=== PATIENT | female | born 1985 | race Caucasian/White ===

== ENCOUNTER 2017-04-23 08:20 | Inpatient (IN) | payer BC ==
[2017-04-23 11:47] LABS: ABS Basophils 0 10^3/ul (0-0.2); ABS Eosinophils 0 10^3/ul (0-0.6); ABS Monocytes 0.5 10^3/ul (0-0.8); ABS Neutrophils 9.8 10^3/ul (1.5-7.7); ABS Nucleated RBC 0 10^3/ul; Eosinophil % 0.3 % (0-6); Hematocrit 36 % (35-47); Hemoglobin 11.4 g/dl (12.0-16.0); Lymphocyte % 15.9 % (25-47); Mean Corpuscular HGB Conc 32 g/dl (31-36); Mean Corpuscular Hemoglobin 25 pg (27-31); Mean Corpuscular Volume 79 fL (80-97); Mean Platelet Volume 11 um3 (7.4-10.4); Nucleated Red Blood Cells % 0; Platelet Count 134 10^3/ul (150-450); Red Blood Count 4.55 10^6/ul (4.0-5.4); Red Cell Distribution Width 16 % (10.5-15); White Blood Count 12.3 10^3/ul (3.5-10.8)
[2017-04-23] MEDS ORDERED: OBEPIDURAL* 250 ML EPIDURAL ONE (12:27)
[2017-04-23] MEDS ORDERED: Famotidine TAB* 20 MG PO PRN (13:02)
[2017-04-23] MEDS ORDERED: Sodium Citrate/Citric Acid* 15 ML UDC PO PRN (13:02)
[2017-04-23] MEDS ORDERED: Phenylephrine IV* 40 MCG/ML 10 ML SYRINGE IV PUSH PRN ×2 (13:02)
[2017-04-23] MEDS ORDERED: OBEPIDURAL* 250 ML EPIDURAL SCH (14:00)
[2017-04-23] MEDS ORDERED: Glycerin ADULT SUPP PR PRN (17:29)
[2017-04-23] MEDS ORDERED: Acetaminophen TAB* 325 MG PO PRN (17:29)
[2017-04-23] MEDS ORDERED: Simethicone TAB* 80 MG TAB.CHEW PO SCH (17:30)
[2017-04-23] MEDS ORDERED: OXYTOCIN* 10 UNITS/ML 1 ML VIAL ONE (17:55)
[2017-04-23] MEDS ORDERED: Oxytocin in LR* 20 UNITS/1,000 ML BAG IVPB SCH (18:00)
[2017-04-23] MEDS: Ibuprofen TAB* 600 MG PO PRN (21:05)
[2017-04-23] MEDS: Docusate CAP* 100 MG PO SCH (21:05)
[2017-04-24 06:42] LABS: ABS Basophils 0 10^3/ul (0-0.2); ABS Eosinophils 0.1 10^3/ul (0-0.6); ABS Monocytes 0.9 10^3/ul (0-0.8); ABS Neutrophils 12.3 10^3/ul (1.5-7.7); ABS Nucleated RBC 0 10^3/ul; Eosinophil % 0.4 % (0-6); Hematocrit 31 % (35-47); Hemoglobin 10.2 g/dl (12.0-16.0); Lymphocyte % 12.9 % (25-47); Mean Corpuscular HGB Conc 33 g/dl (31-36); Mean Corpuscular Hemoglobin 25 pg (27-31); Mean Corpuscular Volume 78 fL (80-97); Mean Platelet Volume 12 um3 (7.4-10.4); Nucleated Red Blood Cells % 0; Platelet Count 124 10^3/ul (150-450); Red Blood Count 4.03 10^6/ul (4.0-5.4); Red Cell Distribution Width 16 % (10.5-15); White Blood Count 15.4 10^3/ul (3.5-10.8)
[2017-04-24] MEDS: Ibuprofen TAB* 600 MG PO PRN ×2 (08:11→14:09)
[2017-04-24] MEDS: Docusate CAP* 100 MG PO SCH ×3 (09:08→21:08)
[2017-04-24] MEDS: Ferrous Gluconate TAB* 324 MG TAB PO SCH ×2 (09:09→21:08)
[2017-04-24] MEDS: Witch Hazel PAD* JAR TOPICAL PRN (13:38)
[2017-04-24] MEDS: Dibucaine 1% 28.35 GM TUBE PR PRN (13:39)
[2017-04-25] MEDS: Ibuprofen TAB* 600 MG PO PRN ×2 (01:40→08:10)
[2017-04-25 07:42] VITALS: BP 109/79
[2017-04-25] MEDS: Docusate CAP* 100 MG PO SCH (08:10)
[2017-04-25] MEDS: Dibucaine 1% 28.35 GM TUBE PR PRN (11:00)
[2017-04-25] MEDS: Witch Hazel PAD* JAR TOPICAL PRN (11:00)
== END 2017-04-25 11:47 | disposition home or self-care (01) | DRG 560 ==
LOC: MCHOBOUT 08:20 → MCHOB 09:01
PROVIDERS: ADMIT Midwife; ATTEND Obstetrics & Gynecology
PROC: 10907ZC Drainage of Amniotic Fluid, Therapeutic from Products of Conception, Via Natural or Artificial Opening (ICD-10-PCS; principal; 2017-04-23)
PROC: 10E0XZZ Delivery of Products of Conception, External Approach (ICD-10-PCS; 2017-04-23)
PROC: 4A1HX4Z Monitoring of Products of Conception, Cardiac Electrical Activity, External Approach (ICD-10-PCS; 2017-04-23)
PROC: 0HQ9XZZ Repair Perineum Skin, External Approach (ICD-10-PCS; 2017-04-23)
DX: O48.0 Post-term pregnancy (principal); O69.82X0 Labor and delivery complicated by other cord entanglement, without compression, not applicable or unspecified; Z3A.40 40 weeks gestation of pregnancy; Z37.0 Single live birth; O70.0 First degree perineal laceration during delivery
CPT/HCPCS: 36415; 85025; 86850; 86900; 86901; A9270-GY; J2590

== ENCOUNTER 2019-01-19 09:02 | Inpatient (IN) | payer BC ==
[2019-01-19] MEDS ORDERED: Lactated Ringers 1000 ML Bag* 1,000 ML IV SCH ×3 (10:00→16:00)
[2019-01-19] MEDS ORDERED: Lactated Ringers 1000 ML Bag* 1,000 ML IV ONE ×2 (10:00→12:46)
[2019-01-19] MEDS ORDERED: Buffered Lidocaine 1% SYRIN* 1 ML/SYRINGE INTRADERM ONE (10:00)
--- NOTE | 2019-01-19 10:23 | HP ---
General Information - Reason for Visit Induction of labor, advanced dilation and history of quick labor. FT - General Information Maternal Age: 32 Grav: 1 Para: 0 SAB: 0 IEA: 0 Estimated Due Date: 01/24/19 Determined By: LMP Gestational Age in Weeks/Days: 39.2 Maternal Blood Type and Rh: O Positive - Results this Serology/RPR Result: Non-Reactive Rubella Result: Immune HBsAg Result: Negative HIV Result: Negative GBS Culture Result: Negative Past Medical History Delivery History: Hx Uncomplicated Vaginal Delivery Pertinent Past Medical History: See Records - migraines Pertinent Past Surgical History: None Pertinent Family History: See Records - MGM: stroke - Antepartal Records Antepartal Records: Reviewed, Uncomplicated Review of Systems Constitutional: Comfortable CV Complaint: No Respiratory: Shortness of Breath: No Gastrointestinal: No Nausea/Vomiting, Normal Bowel Movement Genitourinary: No Dysuria, No Bleeding, No Leaking Fluid Musculoskeletal: No Complaint, No Epigastric Pain Neurological: No Headache Movement: Normal Exam Allergies/Adverse Reactions: Allergies No Known Allergies Allergy (Verified 05/16/15 09:49) T:98.5, P:94, R:128, BP: 117/74, O2:100% - Measurements Height: 5 ft 4 in Weight: 168 lb Body Mass Index (BMI): 28.8 Pre- Weight: 140 lb - Exam Breast: Breast Exam Deferred CVA: No CVA Tenderness Extremities: No Edema Heart: Normal Rhythm/Heart Sounds HEENT: No Significant Findings Lungs: Clear Bilaterally Rectal: Rectal Exam Deferred Reflexes: DTR 2+ Thyroid: No Thyromegaly - Abdominal Exam Abdomen Exam: Non-Tender, Fundal Height Consistent with Dates - Ultrasound/Biophysical Profile Ultrasound Status: Not Done Targeted Exam Findings Estimated Weight: 8lbs 7oz Cervical Exam: 6cm Effacement: 80% Station: -1 Presenting Part: Vertex Membrane Status: AROM Amniotic Fluid Evaluation: Clear Bleeding/Discharge: None EFM Findings - External Monitor Findings Baseline Heart Rate: 135 External Monitor Findings: Accelerations Present, No Pattern of Variable or Late Decelerations, Variability Moderate, Baseline Stable Contractions: Irregular, Mild, < 45 Seconds Assessment/Plan - Assessment 34 y.o. , 39w2d EGA, induction of labor - Plan Plan: Induction - Date/Time of Admission Date of Admission: 01/19/19 Time of Admission: 10:00
[2019-01-19 10:57] LABS: ABS Eosinophils 0.1 10^3/ul (0-0.6); ABS Lymphocytes 1.6 10^3/ul (1.0-4.8); ABS Monocytes 0.4 10^3/ul (0-0.8); ABS Neutrophils 5.7 10^3/ul (1.5-7.7); Eosinophil % 0.7 %; Hematocrit 34 % (35-47); Hemoglobin 10.7 g/dL (12.0-16.0); Lymphocyte % 19.9 %; Mean Corpuscular HGB Conc 32 g/dL (31-36); Mean Corpuscular Hemoglobin 25 pg (27-31); Mean Corpuscular Volume 77 fL (80-97); Platelet Count 127 10^3/uL (150-450); Red Blood Count 4.39 10^6 /uL (3.70-4.87); Red Cell Distribution Width 18 % (10-15); White Blood Count 7.8 10^3/uL (3.5-10.8)
[2019-01-19] MEDS ORDERED: OBEPIDURAL* 250 ML EPIDURAL ONE (11:37)
--- NOTE | 2019-01-19 12:28 | PN ---
Progress Note - Progress Note Date of Service: 01/19/19 SOAP: Subjective: Pt reports contractions increasing in intensity and frequency and increasing pressure. Pt requests epidural. Objective: FHR:125bpm, + accels, -decels, moderate variability, ctx q 2-5min, P:79, BP:117/ 74, T:98.5 Platelets 129 Assessment: 34 y.o. , 39w2d EGA, active labor, cat I NST Plan: 1) Anesthesia consult 2) Reevaluate for progress once comfortable
[2019-01-19] MEDS ORDERED: Phenylephrine 40 MCG/ML SYRINGE IV PUSH PRN ×2 (12:46)
[2019-01-19] MEDS ORDERED: Sodium Citrate/Citric Acid* 15 ML UDC PO PRN (12:46)
[2019-01-19 12:58] LABS: Urine Benzodiazepine Screen None Detected (None Detect); Urine Opiates Screen None Detected (None Detect)
[2019-01-19] MEDS ORDERED: OBEPIDURAL* 250 ML EPIDURAL SCH (13:00)
[2019-01-19] MEDS ORDERED: Glycerin ADULT SUPP PR PRN (15:01)
--- NOTE | 2019-01-19 15:01 | PROCNOTE ---
[facility] OB: Delivery Note - Delivery A Date of : 01/19/19 Time of : 14:39 Sex: Female Score 1 Minute: 8 Score 5 Minutes: 9 Gestational Age in Weeks and Days at Delivery: 39 Weeks and 2 Days Delivery Method: Spontaneous Vaginal Labor: Induced Did Patient attempt ?: N/A, No Previous Amniotic Fluid: Clear Estimated Blood Loss: 150 Anesthesia/Analgesia: CEI for Labor Delivered By: Rhonda Alcaraz - Nursery Level of Nursery: Regular/Bedside - Perineum Perineal Injury: Perineal Laceration, 1st Degree Perineal Repair: By Delivering Practioner
[2019-01-19] MEDS ORDERED: Lidocaine 1% INJ* 10 MG/ML 30 ML SDV ONE (15:26)
[2019-01-19] MEDS: Witch Hazel PAD* JAR TOPICAL PRN (17:21)
[2019-01-19] MEDS: Dibucaine 1% 28.35 GM TUBE PR PRN (17:21)
[2019-01-19] MEDS ORDERED: Simethicone TAB* 80 MG TAB.CHEW PO SCH (17:30)
[2019-01-19] MEDS: Ibuprofen TAB* 600 MG PO PRN (18:21)
[2019-01-19] MEDS: Docusate CAP* 100 MG PO SCH (20:40)
[2019-01-20] MEDS: Acetaminophen TAB* 325 MG PO PRN ×3 (03:16→19:25)
[2019-01-20] MEDS: Ibuprofen TAB* 600 MG PO PRN ×2 (03:16→12:11)
[2019-01-20 06:48] LABS: Hematocrit 29 % (35-47); Hemoglobin 9.5 g/dL (12.0-16.0); Mean Corpuscular HGB Conc 33 g/dL (31-36); Mean Corpuscular Hemoglobin 25 pg (27-31); Mean Corpuscular Volume 77 fL (80-97); Mean Platelet Volume 10.6 fL (7.4-10.4); Platelet Count 110 10^3/uL (150-450); Red Blood Count 3.76 10^6 /uL (3.70-4.87); Red Cell Distribution Width 18 % (10-15); White Blood Count 9.4 10^3/uL (3.5-10.8)
[2019-01-20 07:46] LABS: ABS Eosinophils 0.1 10^3/ul (0-0.6); ABS Lymphocytes 1.8 10^3/ul (1.0-4.8); ABS Monocytes 0.7 10^3/ul (0-0.8); ABS Neutrophils 6.7 10^3/ul (1.5-7.7); Eosinophil % 1.2 %; Lymphocyte % 18.9 %
[2019-01-20] MEDS: Ferrous Gluconate TAB* 324 MG TAB PO SCH ×2 (08:50→19:24)
[2019-01-20] MEDS: Docusate CAP* 100 MG PO SCH ×3 (08:50→19:25)
[2019-01-21] MEDS: Ibuprofen TAB* 600 MG PO PRN ×2 (02:49→08:47)
[2019-01-21 07:26] VITALS: BP 107/71
[2019-01-21] MEDS: Docusate CAP* 100 MG PO SCH (08:46)
[2019-01-21] MEDS: Ferrous Gluconate TAB* 324 MG TAB PO SCH (08:47)
[2019-01-21] MEDS: Dibucaine 1% 28.35 GM TUBE PR PRN (09:55)
[2019-01-21] MEDS: Witch Hazel PAD* JAR TOPICAL PRN (09:55)
== END 2019-01-21 10:26 | disposition home or self-care (01) | DRG 560 ==
LOC: MCHOBOUT 09:02 → MCHOB 10:19
PROVIDERS: ADMIT Midwife; ATTEND Midwife
PROC: 10E0XZZ Delivery of Products of Conception, External Approach (ICD-10-PCS; principal; 2019-01-19)
PROC: 10907ZC Drainage of Amniotic Fluid, Therapeutic from Products of Conception, Via Natural or Artificial Opening (ICD-10-PCS; 2019-01-19)
PROC: 4A1HXCZ Monitoring of Products of Conception, Cardiac Rate, External Approach (ICD-10-PCS; 2019-01-19)
PROC: 0HQ9XZZ Repair Perineum Skin, External Approach (ICD-10-PCS; 2019-01-19)
DX: O90.81 Anemia of the puerperium (principal); D62 Acute posthemorrhagic anemia; Z37.0 Single live birth; Z3A.39 39 weeks gestation of pregnancy; Z91.030 Bee allergy status; O70.0 First degree perineal laceration during delivery
CPT/HCPCS: 36415; 80307; 85025; 86850; 86900; 86901; A9270-GY